=== PATIENT | male | born 1955 | race Caucasian/White ===

== ENCOUNTER 2020-01-12 12:11 | Emergency (ER) | payer OTHER ==
[2020-01-12] MEDS ORDERED: DIPH,PERTUS(ACELL)TETVAC-LF 0.5 ML VIAL IM ONE (12:47)
[2020-01-12] MEDS ORDERED: LIDOCAINE 1% INJ 10MG/ML (20 ML MDV) SQ ONE (12:48)
--- NOTE | 2020-01-12 12:59 | ED ---
Wound/Laceration HPI - General Chief Complaint: Wound/Laceration Stated Complaint: Hand injury Time Seen by Provider: 01/12/20 12:26 Source: patient, RN notes reviewed Mode of arrival: ambulatory Limitations: no limitations - History of Present Illness Initial Comments: 64-year-old male present emergency from chief complaint laceration to his left hand fourth digit. Patient states that he jumping back onto his boat states he cut his finger on the cleats of the boat. Patient states that the ringfinger caught it causing laceration. He is unsure when his last tetanus was. He has full range of motion. He states that he cannot get his ring off at this time. Patient denies any paresthesias. - Related Data Previous Rx's Medication Instructions Recorded Cephalexin [Keflex] 500 mg PO Q8HR #21 cap 01/12/20 Allergies Allergy/AdvReac Type Severity Reaction Status Date / Time No Known Allergies Allergy Verified 01/12/20 12:16 Review of Systems ROS Statement: Those systems with pertinent positive or pertinent negative responses have been documented in the HPI. ROS Other: All systems not noted in ROS Statement are negative. Past Medical History Past Medical History: No Reported History History of Any Multi-Drug Resistant Organisms: None Reported Past Surgical History: Orthopedic Surgery Additional Past Surgical History / Comment(s): right hip Past Psychological History: No Psychological Hx Reported Smoking Status: Never smoker Past Alcohol Use History: Occasional Past Drug Use History: None Reported General Exam Limitations: no limitations General appearance: alert, in no apparent distress Head exam: Present: atraumatic, normocephalic, normal inspection Eye exam: Present: normal appearance, PERRL, EOMI. Absent: scleral icterus, conjunctival injection, periorbital swelling ENT exam: Present: normal exam, normal oropharynx, mucous membranes moist, TM's normal bilaterally Neck exam: Present: normal inspection, full ROM. Absent: tenderness, meningismus, lymphadenopathy Respiratory exam: Present: normal lung sounds bilaterally. Absent: respiratory distress, wheezes, rales, rhonchi, stridor Cardiovascular Exam: Present: regular rate, normal rhythm, normal heart sounds. Absent: systolic murmur, diastolic murmur, rubs, gallop, clicks Extremities exam: Present: other (Left hand fourth digit there is a 2 cm laceration on the volar surface patient's full range of motion of the digit neurovascular intact Refill less than 2 seconds there is a ring noted proximal to the laceration) Course Vital Signs 01/12/20 12:14 Temperature 97.7 F Pulse Rate 78 Respiratory 18 Rate Blood Pressure 156/111 O2 Sat by Pulse 97 Oximetry Procedures - Procedures Initial comment: Left hand fourth digit ring removal ring cutter and Raptor scissors were used to cut the ring and removed with pliers with no complications. - Laceration Laceration #1 Consent Obtained: verbal consent Indication: laceration Site: hand (Left hand fourth digit) Size (cm): 2 Description: flap, irregular Depth: simple, single layer Anesthetic Used: lidocaine 1%, without epi Anesthesia Technique: local infiltration Amount (mls): 3 Pre-repair: wound explored, irrigated extensively, deep structures intact Type of Sutures: nylon Size of Sutures: 4-0 Number of Sutures: 5 Technique: simple, interrupted Patient Tolerated Procedure: well, no complications Medical Decision Making - Medical Decision Making X-ray reveals no acute fracture. Ring was removed with no comp patients. Laceration was approximated with 5 sutures. Return parameters were discussed wound care discussed. Disposition Clinical Impression: Laceration of finger of left hand Disposition: HOME SELF-CARE Condition: Stable Instructions (If sedation given, give patient instructions): Finger Laceration (ED), Care For Your Stitches (ED) Additional Instructions: Have sutures removed in 10 days. Please return to the Emergency Department if symptoms worsen or any other concerns. Prescriptions: Cephalexin [Keflex] 500 mg PO Q8HR #21 cap Is patient prescribed a controlled substance at d/c from ED?: No Referrals: Melvin Rawls MD [Primary Care Provider] - 1-2 days Time of Disposition: 13:36
--- NOTE | 2020-01-12 13:24 | XR ---
Fourth digit left hand HISTORY: Pain, laceration 3 views of the fourth digit of left hand Lucencies present within the soft tissues of the fourth digit left hand consistent with patient's his tory of laceration. There is no radiopaque foreign body evident. Bone mineralization, joint spaces an d alignment are within normal limits. There is soft tissue swelling. IMPRESSION: No fracture or dislocation. No radiopaque foreign body.
[2020-01-12 14:20] VITALS: BP 139/86; PULSE 65; RESP 16; TEMP 97.9
== END 2020-01-12 14:05 | disposition home or self-care (01) ==
LOC: EC 12:11 → SUPCPDRO 12:11 → EC 14:05
DX: S61.215A Laceration without foreign body of left ring finger without damage to nail, initial encounter (principal); V93.83XA Other injury due to other accident on board other powered watercraft, initial encounter; Y93.39 Activity, other involving climbing, rappelling and jumping off; Y92.89 Other specified places as the place of occurrence of the external cause
CPT/HCPCS: 99283; 12001; 90471; 73140; 90715; J2001